=== PATIENT | female | born 1990 | race Caucasian/White ===

== ENCOUNTER 2016-11-19 10:27 | Emergency (ER) | payer BC ==
[2016-11-19] MEDS ORDERED: ONDANSETRON 4 MG/2 ML VIAL IVP STA (11:26)
[2016-11-19] MEDS ORDERED: SODIUM CHLORIDE 0.9% 1,000 ML IV ONE (11:26)
[2016-11-19] MEDS ORDERED: KETOROLAC 30 MG/ML 1 ML VIAL IVP STA (11:26)
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
[2016-11-19 12:30] VITALS: BP 107/53; PULSE 84; RESP 16; TEMP 98.7
== END 2016-11-19 13:10 | disposition home or self-care (01) ==
LOC: EC 10:27
DX: L55.0 Sunburn of first degree (principal); R11.2 Nausea with vomiting, unspecified; R51 Headache; F32.9 Major depressive disorder, single episode, unspecified; Z88.0 Allergy status to penicillin; Z88.1 Allergy status to other antibiotic agents; Z79.899 Other long term (current) drug therapy
CPT/HCPCS: 99282; 96374; 96375; J2405; J1885